=== PATIENT | female | born 1985 | race Caucasian/White ===

== ENCOUNTER 2024-05-06 12:06 | Outpatient (REF) | payer SELFPAY ==
[2024-05-07 13:38] LABS: CDiff Gene PCR NEGATIVE (Negative)
[2024-05-07 14:10] LABS: Adenovirus F 40/41 Not Detected (Not Detect.); Astrovirus Not Detected (Not Detect.); Campylobacter Not Detected (Not Detect.); Cryptosporidium Not Detected (Not Detect.); Cyclospora cayetanensis Not Detected (Not Detect.); E. coli EAEC Not Detected (Not Detect.); E. coli EPEC Not Detected (Not Detect.); E. coli ETEC Not Detected (Not Detect.); E. coli STEC Not Detected (Not Detect.); Entamoeba histolytica Not Detected (Not Detect.); Giardia lamblia Not Detected (Not Detect.); Plesiomonas shigelloides Not Detected (Not Detect.); Rotavirus A Not Detected (Not Detect.); Salmonella Not Detected (Not Detect.); Sapovirus Not Detected (Not Detect.); Shigella sp./EIEC Not Detected (Not Detect.); Vibrio Not Detected (Not Detect.); Vibrio Cholerae Not Detected (Not Detect.); Yersinia enterocolitica Not Detected (Not Detect.)
[2024-05-09 15:40] LABS: Norovirus Stool PCR DETECTED
== END 2024-05-06 12:07 | disposition home or self-care (01) ==
LOC: HO.LNP 12:06
PROVIDERS: Visit Provider Physician Assistant Medical
DX: Z11.0 Encounter for screening for intestinal infectious diseases (principal)
CPT/HCPCS: 87493; 87507